=== PATIENT | male | born 1970 | race American Indian/Alaskan Native ===

== ENCOUNTER 2016-07-23 03:12 | Emergency (ER) | payer OTHER ==
[2016-07-23 03:13] VITALS: PULSE 100
[2016-07-23 03:18] VITALS: BMI 34.2
[2016-07-23] MEDS ORDERED: Rabies Vaccine 2.5 U VIAL IM ONE (03:52)
--- NOTE | 2016-07-23 03:54 | ED PDOC ---
Arrival/HPI - General Historian: Patient - History of Present Illness Symptom Onset: Sudden Symptom Course: Intermittent Quality: Aching, Cramping Severity Level: 6 Activities at Onset: Rest Context: Sitting <Woo Velázquez - Last Filed: 07/23/16 04:17> <Chucho Mccartney - Last Filed: 07/23/16 04:34> - General Chief Complaint: Medical Clearance Time Seen by Provider: 07/23/16 03:32 - History of Present Illness Narrative History of Present Illness (Text): 07/23/16 03:53 45 M with PMHx of DM, end-stage cardiomyopathy s/p heart transplant 2013, stroke , HTN, asthma presents to [facility] ED with complaints of rt sided chest pains. Pt was to follow up for another dose of a rabies vaccine after being bitten by a dog 2 weeks ago, however decided to come to the ED after experiencing rt sided chest pain x 2 days. He was lying down when the sx arose, and he associated it with the cold weather outside exacerbating it. It is a sharp cramping pain, reproducible on palpation, radiates to his rt shoulder blade and is worse when he stretches. He currently rates it at a 6/10, it has remained constant for 2 days and waxes and wanes. He denied fever, chills, sob, palpitations, abdominal pains, n/v/d/c or urinary symptoms. (oWo Velázquez) Past Medical History - Infectious Disease Hx of Infectious Diseases: None - Tetanus Immunization Tetanus Immunization: Up to Date - Cardiac Hx Cardiac Disorders: Yes Hx Angina: Yes Hx Cardiac Arrhythmia: Yes Hx Circulatory Problems: No Hx Congestive Heart Failure: Yes Hx Heart Murmur: No Hx Heart Transplant: No Hx Hypertension: Yes Hx Mitral Valve Prolapse: No Hx Pacemaker: No Hx Peripheral Edema: No Hx Peripheral Vascular Disease: No - Pulmonary Hx Respiratory Disorders: Yes Hx Asthma: Yes Hx Bronchitis: No Hx Chronic Obstructive Pulmonary Disease (COPD): No Hx Emphysema: No Hx Pneumonia: No Hx Respiratory Aspiration: No Hx Respiratory Tract Infection: No Hx Sleep Apnea: No Hx Tuberculosis: No - Neurological Hx Neurological Disorder: Yes Hx Alzheimer's Disease: No HX Cerebrovascular Accident: Yes Hx Dementia: No Hx Dizziness: Yes Hx Meningitis: No Hx Migraine: No Hx Parkinson's Disease: No Hx Seizures: No Hx Transient Ischemic Attacks (TIA): Yes - HEENT Hx HEENT Disorder: No Hx Blind: No Hx Cataracts: No Hx Deafness: No Hx Difficulty Chewing: No Hx Epistaxis: No Hx Glaucoma: No Hx Macular Degeneration: No - Renal Hx Renal Disorder: No Hx Dialysis: No Hx Kidney Stones: No Hx Neurogenic Bladder: No Hx Pyelonephritis: No Hx Renal Cancer: No Hx Renal Failure: No - Endocrine/Metabolic Hx Endocrine Disorders: Yes Hx Adrenal Cancer: No Hx Diabetes Insipidus: No Hx Diabetes Mellitus Type 1: No Hx Diabetes Mellitus Type 2: Yes Hx Hyperthyroidism: No Hx Hypothyroidism: No Hx Systemic Lupus Erythematosus: No - Hematological/Oncological Hx Blood Disorders: No Hx AIDS: No Hx Anemia: No Hx Cancer: No Hx Chemotherapy: No Hx Cirrhosis: No Hx Hemophilia: No Hx Hepatitis A: No Hx Hepatitis B: No Hx Hepatitis C: No Hx Metastasis: No Hx Shingles: No Hx Sickle Cell Disease: No Hx Unexplained Bleeding: No - Integumentary Hx Dermatological Disorder: No Hx Basal Cell Carcinoma: No Hx Eczema: No Hx Melanoma: No Hx Psoriasis: No Hx Squamous Cell Carcinoma: No - Musculoskeletal/Rheumatological Hx Musculoskeletal Disorders: No Hx Falls: No - Gastrointestinal Hx Gastrointestinal Disorders: No Hx Colostomy: No Hx Crohn's Disease: No Hx Diverticulitis: No Hx Gall Bladder Disease: No Hx Gastroesophageal Reflux: No Hx Gastrointestinal Ulcer: No Hx Ileostomy: No Hx Liver Failure: No Hx Pancreatitis: No HX Swallowing Problems: No - Genitourinary/Gynecological Hx Genitourinary Disorders: No Hx Hematuria: No Hx Incontinence: No Hx Prostate Problems: No Hx Sexually Transmitted Diseases: No Hx Urinary Tract Infection: No - Psychiatric Hx Psychophysiologic Disorder: No Hx Anxiety: No Hx Bipolar Disorder: No Hx Depression: No Hx Emotional Abuse: No Hx Hallucinations: No Hx Panic Disorder: No Hx Post Traumatic Stress Disorder: No Hx Psychosis: No Hx Physical Abuse: No Hx Schizophrenia: No Hx Sexual Abuse: No Hx Substance Use: No - Past Surgical History Past Surgical History: No Previous - Surgical History Hx Amputation: No Hx Appendectomy: No Hx Cardiac Catheterization: Yes Hx Cholecystectomy: No Hx Coronary Stent: No Hx Gastric Bypass Surgery: No Hx Hysterectomy: No Hx Joint Replacement: No Hx Kidney Transplant: No Hx Liver Transplant: No Hx Mastectomy: No Hx Musculoskeletal Surgery: No Hx Open Heart Surgery: No Hx Orthopedic Surgery: No Hx Splenectomy: No Hx Valve Replacement: No Other/Comment: heart transplant 2013 - Anesthesia Hx Anesthesia Reactions: No Hx Malignant Hyperthermia: No - Suicidal Assessment Feels Threatened In Home Enviroment: Yes <Woo Velázquez - Last Filed: 07/23/16 04:17> - Provider Review Nursing Documentation Reviewed: Yes <Chucho Mccartney - Last Filed: 07/23/16 04:34> Family/Social History Family/Social History: Hypertension Smoking Status: Former Smoker Hx Alcohol Use: No Hx Substance Use: No Hx Substance Use Treatment: No <Woo Velázquez - Last Filed: 07/23/16 04:17> - Physician Review Nursing Documentation Reviewed: Yes <Chucho Mccartney - Last Filed: 07/23/16 04:34> Allergies/Home Meds <Woo Velázquez - Last Filed: 07/23/16 04:17> <Chucho Mccartney - Last Filed: 07/23/16 04:34> Allergies/Adverse Reactions: Allergies shellfish Allergy (Severe, Uncoded 07/23/16 03:22) ANGIOEDEMA Home Medications: Home Meds Medication Instructions Recorded Confirmed Warfarin [Coumadin] 6 mg PO DAILY 10/18/11 07/23/16 Aspirin [Aspirin Chewable] 81 mg PO DAILY 08/12/15 07/23/16 Atorvastatin [Lipitor] 10 mg PO DAILY 08/12/15 07/23/16 Calcium Citrate [Calcium Citrate] 950 mg PO DAILY 08/12/15 07/23/16 Folic Acid [Folic Acid] 1 mg PO DAILY 08/12/15 07/23/16 Gabapentin [Neurontin] 800 mg PO Q8 08/12/15 07/23/16 Lisinopril [Zestril] 10 mg PO DAILY 08/12/15 07/23/16 Magnesium Oxide [Laxative Dietary 1,500 mg PO BID 08/12/15 07/23/16 Supplement] MetFORMIN [glucoPHAGE] 500 mg PO BID 08/12/15 07/23/16 Multivitamin [Multivitamins] 1 tab PO DAILY 08/12/15 07/23/16 Pantoprazole Sodium [Protonix] 40 mg PO DAILY 08/12/15 07/23/16 Tacrolimus [Tacrolimus] 6 mg PO BID 08/12/15 07/23/16 Review of Systems - Physician Review All systems were reviewed & negative as marked: Yes - Review of Systems Constitutional: absent: Fevers Respiratory: absent: SOB, Cough Cardiovascular: Chest Pain. absent: Palpitations Gastrointestinal: absent: Nausea, Vomiting Genitourinary Male: absent: Dysuria, Frequency, Hematuria Musculoskeletal: absent: Back Pain, Neck Pain Skin: absent: Rash Neurological: absent: Headache, Dizziness <Chucho Mccartney - Last Filed: 07/23/16 04:34> Physical Exam Vital Signs Reviewed: Yes Temperature: Afebrile Blood Pressure: Normal Pulse: Regular Respiratory Rate: Normal Appearance: Positive for: Well-Appearing, Non-Toxic, Comfortable Pain Distress: Moderate Mental Status: Positive for: Alert and Oriented X 3 - Systems Exam Head: Present: Atraumatic, Normocephalic Pupils: Present: PERRL Extroacular Muscles: Present: EOMI Conjunctiva: Present: Normal Mouth: Present: Moist Mucous Membranes Neck: Present: Normal Range of Motion Respiratory/Chest: Present: Clear to Auscultation, Good Air Exchange. No: Respiratory Distress, Accessory Muscle Use Cardiovascular: Present: Regular Rate and Rhythm, Normal S1, S2. No: Murmurs Abdomen: Present: Tenderness Upper Extremity: Present: Normal Inspection. No: Cyanosis, Edema Lower Extremity: Present: Normal Inspection. No: Edema Skin: Present: Warm, Dry, Normal Color. No: Rashes Psychiatric: Present: Alert, Oriented x 3, Normal Insight, Normal Concentration <Woo Velázquez - Last Filed: 07/23/16 04:17> Vital Signs Temp Pulse Resp BP Pulse Ox 07/23/16 03:57 97.6 F 90 18 145/88 97 Medical Decision Making <Woo Velázquez - Last Filed: 07/23/16 04:17> <Chucho Mccartney - Last Filed: 07/23/16 04:34> ED Course and Treatment: Pt seen and evaluated with medical device sales consultant. Pt, whose past medical history includes diabetes, cardiomyopathy, heart transplant, stroke, hypertension, and asthma, presented for right-sided chest pain, reproducible with palpation. Pt also presented for 3rd rabies vaccine s/p dog bite 2 weeks ago. Aware and agree with HPI, clinical findings, plan, and management. Plan: -- Imovax Rabies -- Percocet -- Reassess and disposition (Chucho Mccartney) - Medication Orders Current Medication Orders: Discontinued Medications Oxycodone/Acetaminophen (Percocet 5/325 Mg Tab) 1 tab PO STAT STA Stop: 07/23/16 03:57 Last Admin: 07/23/16 04:05 Dose: 1 TAB Rabies Vaccine Human Diploid Cell (Imovax Rabies) 2.5 u IM .ONCE ONE Stop: 07/23/16 03:53 Last Admin: 07/23/16 04:06 Dose: 2.[address] [facility] Immunization Data Document 07/23/16 04:06 EKMORENA (Rec: 07/23/16 04:08 [email or web address] [id number] [email or web address]) Immunization Data Vaccine Lot Number [id number] Vaccine Expiration Date 07/09/19 Site Given Left Deltoid Immunization Units ml Disposition/Present on Arrival - Present on Arrival Any Indicators Present on Arrival: Yes History of DVT/PE: Yes History of Uncontrolled Diabetes: No Urinary Catheter: No History of Decub. Ulcer: No History Surgical Site Infection Following: None - Disposition Have Diagnosis and Disposition been Completed?: Yes Disposition Time: 04:00 Patient Plan: Discharge <Woo Velázquez - Last Filed: 07/23/16 04:17> <Chucho Mccartney - Last Filed: 07/23/16 04:34> - Disposition Diagnosis: Chest wall discomfort, Need for rabies vaccination Disposition: HOME/ ROUTINE Patient Problems: Current Active Problems Problem Status Diagnosed Chest wall discomfort Acute Need for rabies vaccination Acute Condition: STABLE Discharge Instructions (ExitCare): Rabies Vaccine (By injection), Chest Wall Pain (ED) Print Language: SINHALA Prescriptions: oxyCODONE/Acetaminophen [Percocet 5/325 mg Tab] 1 tab PO Q6H PRN #10 tab PRN Reason: moderate to severe pain - Notes Notes (Text): 07/23/16 04:17 Patient is nontoxic well-appearing in no distress. Vital signs are stable. Patient presents for rabies vaccine, and msk rt sided chest wall tenderness Patient missed the day 3 rabies vaccine and presents one day early for his day 7 rabies vaccine. We will administer the rabies vaccine today and then have the patient continue the rabies vaccine on day 28 08/05 since the patient is immunosuppressed. wound healing well without signs of infection. Patient was advised to keep the wound clean and dry, apply bacitracin twice daily, to continue to take the antibiotics as prescribed and return immediately if symptoms worsen persist or if new symptoms develop. pt was advised to return august 05 for continuation of his rabies vaccine schedule. Patient verbalizes understanding of discharge instructions and need for immediate followup. all aspects of this case were discussed the attending of record. Impression: need for rabies vaccine, dog bite. Continue antibiotics as prescribed. Keep the wound clean and dry, apply bacitracin twice daily Return on August 05 for the remainder or your rabies vaccine. Return immediately if signs of infection develop; High fevers, increasing pain, increasing redness, swelling or if any other concerning symptoms develop. Return immediately if any other concerning symptoms develop. (Woo Velázquez)
[2016-07-23] MEDS ORDERED: Oxycodone/Acetaminophen 5/325 mg Tab PO STA (03:56)
[2016-07-23 03:58] VITALS: BP 145/88; PULSE 90; RESP 18; TEMP 97.6; O2SAT 97
--- NOTE | 2016-07-23 10:22 | CARD ---
APPROVED REPORT EKG Measurement Heart [id number] <Conclusion> Normal sinus rhythm Possible old IMI NSSTW changes Mildly prolonged QTc No change
== END 2016-07-23 05:27 | disposition home or self-care (01) ==
LOC: ED 03:12
DX: R07.89 Other chest pain (principal); Z23 Encounter for immunization; I10 Essential (primary) hypertension

== ENCOUNTER 2016-08-06 09:21 | Emergency (ER) | payer OTHER ==
[2016-08-06 09:22] VITALS: PULSE 100; BMI 34.2
[2016-08-06 09:39] VITALS: TEMP 97.5
--- NOTE | 2016-08-06 10:12 | ED PDOC ---
Arrival/HPI - General Historian: Patient - History of Present Illness Time/Duration: < month Context: Home - General Chief Complaint: Rabies Vaccine Series Time Seen by Provider: 08/06/16 10:12 - History of Present Illness Narrative History of Present Illness (Text): 08/06/16 10:12 This 45 yo male presents to this ED to get his last dose of Rabies vaccine. Patient was seen this ED 3 times, in which he received Rabies shot. Today he is expecting to get day 14 rabies shot. He said his dogs bite wounds have completely healed. Patient denies new complains. (Delilah Enriquez) Past Medical History - Provider Review Nursing Documentation Reviewed: Yes - Infectious Disease Hx of Infectious Diseases: None - Tetanus Immunization Tetanus Immunization: Up to Date - Cardiac Hx Cardiac Disorders: Yes Hx Angina: Yes Hx Cardiac Arrhythmia: Yes Hx Circulatory Problems: No Hx Congestive Heart Failure: Yes Hx Heart Murmur: No Hx Heart Transplant: No Hx Hypertension: Yes Hx Mitral Valve Prolapse: No Hx Pacemaker: No Hx Peripheral Edema: No Hx Peripheral Vascular Disease: No - Pulmonary Hx Respiratory Disorders: Yes Hx Asthma: Yes Hx Bronchitis: No Hx Chronic Obstructive Pulmonary Disease (COPD): No Hx Emphysema: No Hx Pneumonia: No Hx Respiratory Aspiration: No Hx Respiratory Tract Infection: No Hx Sleep Apnea: No Hx Tuberculosis: No - Neurological Hx Neurological Disorder: Yes Hx Alzheimer's Disease: No HX Cerebrovascular Accident: Yes Hx Dementia: No Hx Dizziness: Yes Hx Meningitis: No Hx Migraine: No Hx Parkinson's Disease: No Hx Seizures: No Hx Transient Ischemic Attacks (TIA): Yes - HEENT Hx HEENT Disorder: No Hx Blind: No Hx Cataracts: No Hx Deafness: No Hx Difficulty Chewing: No Hx Epistaxis: No Hx Glaucoma: No Hx Macular Degeneration: No - Renal Hx Renal Disorder: No Hx Dialysis: No Hx Kidney Stones: No Hx Neurogenic Bladder: No Hx Pyelonephritis: No Hx Renal Cancer: No Hx Renal Failure: No - Endocrine/Metabolic Hx Endocrine Disorders: Yes Hx Adrenal Cancer: No Hx Diabetes Insipidus: No Hx Diabetes Mellitus Type 1: No Hx Diabetes Mellitus Type 2: Yes Hx Hyperthyroidism: No Hx Hypothyroidism: No Hx Systemic Lupus Erythematosus: No - Hematological/Oncological Hx Blood Disorders: No Hx AIDS: No Hx Anemia: No Hx Cancer: No Hx Chemotherapy: No Hx Cirrhosis: No Hx Hemophilia: No Hx Hepatitis A: No Hx Hepatitis B: No Hx Hepatitis C: No Hx Metastasis: No Hx Shingles: No Hx Sickle Cell Disease: No Hx Unexplained Bleeding: No - Integumentary Hx Dermatological Disorder: No Hx Basal Cell Carcinoma: No Hx Eczema: No Hx Melanoma: No Hx Psoriasis: No Hx Squamous Cell Carcinoma: No - Musculoskeletal/Rheumatological Hx Musculoskeletal Disorders: No Hx Falls: No - Gastrointestinal Hx Gastrointestinal Disorders: No Hx Colostomy: No Hx Crohn's Disease: No Hx Diverticulitis: No Hx Gall Bladder Disease: No Hx Gastroesophageal Reflux: No Hx Gastrointestinal Ulcer: No Hx Ileostomy: No Hx Liver Failure: No Hx Pancreatitis: No HX Swallowing Problems: No - Genitourinary/Gynecological Hx Genitourinary Disorders: No Hx Hematuria: No Hx Incontinence: No Hx Prostate Problems: No Hx Sexually Transmitted Diseases: No Hx Urinary Tract Infection: No - Psychiatric Hx Psychophysiologic Disorder: No Hx Anxiety: No Hx Bipolar Disorder: No Hx Depression: No Hx Emotional Abuse: No Hx Hallucinations: No Hx Panic Disorder: No Hx Post Traumatic Stress Disorder: No Hx Psychosis: No Hx Physical Abuse: No Hx Schizophrenia: No Hx Sexual Abuse: No Hx Substance Use: No - Past Surgical History Past Surgical History: No Previous - Surgical History Hx Amputation: No Hx Appendectomy: No Hx Cardiac Catheterization: Yes Hx Cholecystectomy: No Hx Coronary Stent: No Hx Gastric Bypass Surgery: No Hx Hysterectomy: No Hx Joint Replacement: No Hx Kidney Transplant: No Hx Liver Transplant: No Hx Mastectomy: No Hx Musculoskeletal Surgery: No Hx Open Heart Surgery: No Hx Orthopedic Surgery: No Hx Splenectomy: No Hx Valve Replacement: No Other/Comment: heart transplant 2013 - Anesthesia Hx Anesthesia Reactions: No Hx Malignant Hyperthermia: No - Suicidal Assessment Feels Threatened In Home Enviroment: Yes Family/Social History - Physician Review Nursing Documentation Reviewed: Yes Family/Social History: No Known Family HX Smoking Status: Former Smoker Hx Alcohol Use: No Hx Substance Use: No Hx Substance Use Treatment: No Allergies/Home Meds Allergies/Adverse Reactions: Allergies shellfish Allergy (Severe, Uncoded 08/06/16 09:39) ANGIOEDEMA Home Medications: Home Meds Medication Instructions Recorded Confirmed Warfarin [Coumadin] 6 mg PO DAILY 10/18/11 07/23/16 Aspirin [Aspirin Chewable] 81 mg PO DAILY 08/12/15 07/23/16 Atorvastatin [Lipitor] 10 mg PO DAILY 08/12/15 07/23/16 Calcium Citrate [Calcium Citrate] 950 mg PO DAILY 08/12/15 07/23/16 Folic Acid [Folic Acid] 1 mg PO DAILY 08/12/15 07/23/16 Gabapentin [Neurontin] 800 mg PO Q8 08/12/15 07/23/16 Lisinopril [Zestril] 10 mg PO DAILY 08/12/15 07/23/16 Magnesium Oxide [Laxative Dietary 1,500 mg PO BID 08/12/15 07/23/16 Supplement] MetFORMIN [glucoPHAGE] 500 mg PO BID 08/12/15 07/23/16 Multivitamin [Multivitamins] 1 tab PO DAILY 08/12/15 07/23/16 Pantoprazole Sodium [Protonix] 40 mg PO DAILY 08/12/15 07/23/16 Tacrolimus [Tacrolimus] 6 mg PO BID 08/12/15 07/23/16 Review of Systems - Review of Systems Constitutional: Normal. absent: Fatigue, Weight Change, Fevers Eyes: Normal ENT: Normal Respiratory: Normal Cardiovascular: Normal Gastrointestinal: Normal Genitourinary Male: Normal Musculoskeletal: Normal Skin: Other (multiple wound sacr on right hand form dog puncture. ) Neurological: Normal Endocrine: Normal Hemo/Lymphatic: Normal Psychiatric: Normal Physical Exam Temperature: Afebrile Blood Pressure: Normal Pulse: Regular Respiratory Rate: Normal Appearance: Positive for: Well-Appearing, Non-Toxic, Comfortable Pain Distress: None Mental Status: Positive for: Alert and Oriented X 3 - Systems Exam Head: Present: Atraumatic, Normocephalic Pupils: Present: PERRL Extroacular Muscles: Present: EOMI Conjunctiva: Present: Normal Mouth: Present: Moist Mucous Membranes Neck: Present: Normal Range of Motion Respiratory/Chest: Present: Clear to Auscultation, Good Air Exchange. No: Respiratory Distress, Accessory Muscle Use, Wheezes, Decreased Breath Sounds, Retracting, Rhonchi, Tachypneic Cardiovascular: Present: Regular Rate and Rhythm, Normal S1, S2. No: Murmurs Upper Extremity: Present: Normal Inspection, Normal ROM, Neurovascularly Intact. No: Tenderness, Swelling, Erythema, Temperature Abnormalties Lower Extremity: Present: Normal Inspection, NORMAL PULSES, Normal ROM. No: Edema, CALF TENDERNESS Neurological: Present: GCS=15, CN II-XII Intact, Speech Normal, Motor Func Grossly Intact, Normal Sensory Function, Normal Cerebellar Funct Skin: Present: Warm, Dry, Normal Color. No: Rashes Psychiatric: Present: Alert, Oriented x 3 Vital Signs Temp Pulse Resp BP Pulse Ox 08/06/16 11:14 139 H 17 139/78 98 08/06/16 09:35 97.5 F L 99 H 18 133/77 100 Medical Decision Making Re-evaluation Time: 10:28 Reassessment Condition: Re-examined, Improved ED Course and Treatment: 08/06/16 10:28 Re-evaluation. Patient feels better. Discussed results and plan with patient who expresses understanding. All questions answered and there is agreement with the plan to discharge home with instructions. Patient stable for discharge. Return if symptoms persist or worsen. Patient was made aware that today is his 4th, and last rabies shot. He had completed Day 0, 3, 7, and 14 (Delilah Enriquez) I was available for consultation during PA evaluation. The chart was reviewed by me, and I agree with disposition. The documented history was done by the physician welder setter resistance machine. The documented physical exam was done by the physician welder setter resistance machine. The documented procedures were done by the physician welder setter resistance machine. ( Young Crain) - Medication Orders Current Medication Orders: Discontinued Medications Rabies Vaccine Human Diploid Cell (Imovax Rabies) 2.5 u IM .ONCE ONE Stop: 08/06/16 10:16 Last Admin: 08/06/16 10:58 Dose: 2.5 U [facility] Immunization Data Document 08/06/16 10:58 SF (Rec: 08/06/16 11:00 [email or web address]) Immunization Data Vaccine Lot Number [id number] Vaccine Expiration Date 12/28/19 Site Given Left Deltoid Route Intramuscular Disposition/Present on Arrival - Present on Arrival Any Indicators Present on Arrival: No History of DVT/PE: No History of Uncontrolled Diabetes: No Urinary Catheter: No History of Decub. Ulcer: No History Surgical Site Infection Following: None - Disposition Have Diagnosis and Disposition been Completed?: Yes Disposition Time: 10:29 Patient Plan: Discharge - Disposition Diagnosis: Need for rabies vaccination Disposition: HOME/ ROUTINE Condition: GOOD Discharge Instructions (ExitCare): Rabies Vaccine (By injection) Additional Instructions: Call private doctor for further medical evaluation as needed. Referrals: Bry Vu MD [Primary Care Provider] - Follow up with primary Forms: WORK NOTE
[2016-08-06] MEDS ORDERED: Rabies Vaccine 2.5 U VIAL IM ONE (10:15)
[2016-08-06 11:14] VITALS: BP 139/78; PULSE 139; RESP 17; O2SAT 98
== END 2016-08-06 11:14 | disposition home or self-care (01) ==
LOC: ED 09:21
DX: Z23 Encounter for immunization (principal)

== ENCOUNTER 2016-11-11 02:17 | Emergency (ER) | payer OTHER ==
[2016-11-11 02:18] VITALS: PULSE 100; BMI 34.2
[2016-11-11] MEDS ORDERED: Ampicillin/Sulbactam 3 GM in Sodium Chloride 0.9% 100 ML IVPB STA (03:03)
[2016-11-11] MEDS ORDERED: Lidocaine 1% Inj (20ml) ONE (03:04)
--- NOTE | 2016-11-11 03:21 | ED PDOC ---
Arrival/HPI - General Chief Complaint: Upper Extremity Problem/Injury Time Seen by Provider: 11/11/16 02:55 Historian: Patient - History of Present Illness Narrative History of Present Illness (Text): 11/11/16 03:18 Avel Marie is a 45 year old male, with a history of diabetes, presents to the emergency department for evaluation of dog bite to both hands. Patient sustained the bite to his palms when he tried to break up a fight between 2 of his dogs. Patient unsure if the dog that bit him is up to date with its shots. Patient had a history of recent dog bit during July 2016 when he was vaccinated against Rabies and tetanus was updated. Denies any numbness, weakness or tingling sensation to the extremities. Denies any other complaints. Time/Duration: Prior to Arrival Symptom Onset: Gradual Severity Level: Moderate Context: Home Past Medical History - Provider Review Nursing Documentation Reviewed: Yes - Infectious Disease Hx of Infectious Diseases: None - Tetanus Immunization Tetanus Immunization: Up to Date - Cardiac Hx Cardiac Disorders: Yes Hx Angina: Yes Hx Cardiac Arrhythmia: Yes Hx Circulatory Problems: No Hx Congestive Heart Failure: Yes Hx Heart Murmur: No Hx Heart Transplant: Yes (2013) Hx Hypertension: Yes Hx Mitral Valve Prolapse: No Hx Pacemaker: No Hx Peripheral Edema: No Hx Peripheral Vascular Disease: No - Pulmonary Hx Respiratory Disorders: Yes Hx Asthma: Yes Hx Bronchitis: No Hx Chronic Obstructive Pulmonary Disease (COPD): No Hx Emphysema: No Hx Pneumonia: No Hx Respiratory Aspiration: No Hx Respiratory Tract Infection: No Hx Sleep Apnea: No Hx Tuberculosis: No - Neurological Hx Neurological Disorder: Yes Hx Alzheimer's Disease: No HX Cerebrovascular Accident: Yes Hx Dementia: No Hx Meningitis: No Hx Migraine: No Hx Parkinson's Disease: No Hx Seizures: No Hx Transient Ischemic Attacks (TIA): Yes - HEENT Hx HEENT Disorder: No Hx Blind: No Hx Cataracts: No Hx Deafness: No Hx Difficulty Chewing: No Hx Epistaxis: No Hx Glaucoma: No Hx Macular Degeneration: No - Renal Hx Renal Disorder: No Hx Dialysis: No Hx Kidney Stones: No Hx Neurogenic Bladder: No Hx Pyelonephritis: No Hx Renal Cancer: No Hx Renal Failure: No - Endocrine/Metabolic Hx Endocrine Disorders: Yes Hx Adrenal Cancer: No Hx Diabetes Insipidus: No Hx Diabetes Mellitus Type 1: No Hx Diabetes Mellitus Type 2: Yes Hx Hyperthyroidism: No Hx Hypothyroidism: No Hx Systemic Lupus Erythematosus: No - Hematological/Oncological Hx Blood Disorders: No Hx AIDS: No Hx Anemia: No Hx Cancer: No Hx Chemotherapy: No Hx Cirrhosis: No Hx Hemophilia: No Hx Hepatitis A: No Hx Hepatitis B: No Hx Hepatitis C: No Hx Metastasis: No Hx Shingles: No Hx Sickle Cell Disease: No Hx Unexplained Bleeding: No - Integumentary Hx Dermatological Disorder: No Hx Basal Cell Carcinoma: No Hx Eczema: No Hx Melanoma: No Hx Psoriasis: No Hx Squamous Cell Carcinoma: No - Musculoskeletal/Rheumatological Hx Musculoskeletal Disorders: No Hx Falls: No - Gastrointestinal Hx Gastrointestinal Disorders: No Hx Colostomy: No Hx Crohn's Disease: No Hx Diverticulitis: No Hx Gall Bladder Disease: No Hx Gastroesophageal Reflux: No Hx Gastrointestinal Ulcer: No Hx Ileostomy: No Hx Liver Failure: No Hx Pancreatitis: No HX Swallowing Problems: No - Genitourinary/Gynecological Hx Genitourinary Disorders: No Hx Hematuria: No Hx Incontinence: No Hx Prostate Problems: No Hx Sexually Transmitted Diseases: No Hx Urinary Tract Infection: No - Psychiatric Hx Psychophysiologic Disorder: No Hx Anxiety: No Hx Bipolar Disorder: No Hx Depression: No Hx Emotional Abuse: No Hx Hallucinations: No Hx Panic Disorder: No Hx Post Traumatic Stress Disorder: No Hx Psychosis: No Hx Physical Abuse: No Hx Schizophrenia: No Hx Sexual Abuse: No Hx Substance Use: No - Past Surgical History Past Surgical History: No Previous - Surgical History Hx Amputation: No Hx Appendectomy: No Hx Cardiac Catheterization: Yes Hx Cholecystectomy: No Hx Coronary Stent: No Hx Gastric Bypass Surgery: No Hx Hysterectomy: No Hx Joint Replacement: No Hx Kidney Transplant: No Hx Liver Transplant: No Hx Mastectomy: No Hx Musculoskeletal Surgery: No Hx Open Heart Surgery: No Hx Orthopedic Surgery: Yes (in rt shoulder) Hx Splenectomy: No Hx Valve Replacement: No Other/Comment: heart transplant 2013 - Anesthesia Hx Anesthesia Reactions: No Hx Malignant Hyperthermia: No - Suicidal Assessment Feels Threatened In Home Enviroment: Yes Family/Social History - Physician Review Nursing Documentation Reviewed: Yes Family/Social History: No Known Family HX Smoking Status: Former Smoker Hx Alcohol Use: No Hx Substance Use: No Hx Substance Use Treatment: No Allergies/Home Meds Allergies/Adverse Reactions: Allergies shellfish Allergy (Severe, Uncoded 11/11/16 02:39) ANGIOEDEMA Home Medications: Home Meds Medication Instructions Recorded Confirmed Warfarin [Coumadin] 6 mg PO DAILY 10/18/11 11/11/16 Aspirin [Aspirin Chewable] 81 mg PO DAILY 08/12/15 11/11/16 Atorvastatin [Lipitor] 10 mg PO DAILY 08/12/15 11/11/16 Calcium Citrate [Calcium Citrate] 950 mg PO DAILY 08/12/15 11/11/16 Folic Acid [Folic Acid] 1 mg PO DAILY 08/12/15 11/11/16 Lisinopril [Zestril] 10 mg PO DAILY 08/12/15 11/11/16 Magnesium Oxide [Laxative Dietary 1,500 mg PO BID 08/12/15 11/11/16 Supplement] MetFORMIN [glucoPHAGE] 500 mg PO BID 08/12/15 11/11/16 Multivitamin [Multivitamins] 1 tab PO DAILY 08/12/15 11/11/16 Pantoprazole Sodium [Protonix] 40 mg PO DAILY 08/12/15 11/11/16 Tacrolimus [Tacrolimus] 6 mg PO BID 08/12/15 11/11/16 Review of Systems - Review of Systems Constitutional: absent: Fevers Musculoskeletal: Other (large laceration on left palm. small superficial laceration on right palm. ) Physical Exam Vital Signs Temp Pulse Resp BP Pulse Ox 11/11/16 03:39 102 H 19 138/86 100 11/11/16 02:34 98.5 F 106 H 18 161/99 H 99 Temperature: Afebrile Blood Pressure: Hypertensive Pulse: Tachycardic Respiratory Rate: Normal Appearance: Positive for: Uncomfortable Pain Distress: Mild Mental Status: Positive for: Alert and Oriented X 3 - Systems Exam Head: Present: Atraumatic, Normocephalic Upper Extremity: Present: Normal ROM, NORMAL PULSES, Neurovascularly Intact, Other (8 cm laceration along the crease of thenar eminance in left hand. Multiple superficial lacerations on left forearm. small laceration on right web space; no tendon exposure ). No: Edema Neurological: Present: GCS=15, CN II-XII Intact, Speech Normal, Motor Func Grossly Intact, Normal Sensory Function Psychiatric: Present: Alert, Oriented x 3, Normal Insight, Normal Concentration Medical Decision Making ED Course and Treatment: 11/11/16 03:28 Impression: A 45 year old male who presents to the emergency department for evaluation of dog bite to bilateral palms, with the one on the right being more prominent. Patient already received rabies prophylaxis about 3 months ago as well as tetanus. Plan: -- Unasyn -- Rabies Vaccine -- Xrays -- Reassess and disposition Progress Notes: 11/11/16 07:24 X-ray showing no FB and patient is NV intact with FROM. Spoke with [facility] hand coverage, who advised that since patient is nv intact, that irrigation and closure with abx coverage is sufficient. resident care supervisor did loose approximation in the ED for closure and patient given rabies and one dose of unasyn. Case discussed with Dr. Chamberlain who said she can follow up the patient in her office. He will be discharged on abx and pain medicine and f/u with Dr. Chamberlain and return to the ED in 3 days for second and final dose of rabies prophylaxis. - RAD Interpretation Radiology Orders: 11/11/16 03:24 HAND LEFT 3 VIEWS ROUTINE [RAD] Stat HAND RIGHT 3 VIEWS [RAD] Stat - Medication Orders Current Medication Orders: Discontinued Medications Ampicillin Sodium/Sulbactam (Sodium 3 gm/ Sodium Chloride) 100 mls @ 100 mls/ hr IVPB STAT STA PRN Reason: Protocol Stop: 11/11/16 04:02 Last Admin: 11/11/16 03:38 Dose: 100 mls/hr Lidocaine HCl (Lidocaine 1% (20ml)) Confirm Administered Dose 20 ml .ROUTE .STK- MED ONE Stop: 11/11/16 03:05 Oxycodone/Acetaminophen (Percocet 5/325 Mg Tab) 2 tab PO STAT STA Stop: 11/11/16 05:01 Last Admin: 11/11/16 05:23 Dose: 2 tab Rabies Vaccine Human Diploid Cell (Rabavert Vaccine Inj) 2.5 u IM .ONCE ONE Stop: 11/11/16 03:43 Last Admin: 11/11/16 05:04 Dose: 2.5 u - Scribe Statement The provider has reviewed the documentation as recorded by the Artem Guardado Provider Attestation: All medical record entries made by the Scribe were at my direction and personally dictated by me. I have reviewed the chart and agree that the record accurately reflects my personal performance of the history, physical exam, medical decision making, and the department course for this patient. I have also personally directed, reviewed, and agree with the discharge instructions and disposition. Disposition/Present on Arrival - Present on Arrival Any Indicators Present on Arrival: No History of DVT/PE: No History of Uncontrolled Diabetes: No Urinary Catheter: No History of Decub. Ulcer: No History Surgical Site Infection Following: None - Disposition Have Diagnosis and Disposition been Completed?: Yes Diagnosis: Dog bite, Dog bite of hand, Laceration of hand Disposition: HOME/ ROUTINE Disposition Time: 07:30 Patient Plan: Discharge Condition: GOOD Discharge Instructions (ExitCare): Laceration (ED), Animal Bite (ED) Additional Instructions: Keep hand elevated in sling. Take the antibiotics as prescribed. Percocet for pain as prescribed. Make sure your follow up with Dr. Chamberlain, hand surgeon. Return to the ER in three days for your second and final rabies vaccine. Return to the emergency department if any new concerning symptoms. Prescriptions: Amoxicillin/Clavulanate [Augmentin 875 MG-125 MG] 1 tab PO BID #20 tab oxyCODONE/Acetaminophen [Percocet 5/325 mg Tab] 1 - 2 tab PO Q6H PRN #20 tab PRN Reason: Pain, Severe (8-10) Referrals: Aviva Chamberlain MD [Non-Staff] - Follow up with primary
[2016-11-11] MEDS ORDERED: RABIES VACCINE 2.5 U PDR IM ONE (03:42)
[2016-11-11] MEDS ORDERED: Oxycodone/Acetaminophen 5/325 mg Tab PO STA (05:00)
--- NOTE | 2016-11-11 07:43 | RAD ---
PROCEDURE: Left Hand Radiographs. HISTORY: dog bite COMPARISON: None. FINDINGS: BONES: No fracture. JOINTS: Normal. No osteoarthritic changes. SOFT TISSUES: There is thenar mottled density and soft tissues swelling consistent with the history. No cortical or osseous an abruption seen. No gross radiopaque foreign body OTHER FINDINGS: None. IMPRESSION: Soft tissue alteration consistent with dog bite no cortical/ osseous interruption. No radiopaque foreign body appreciated
--- NOTE | 2016-11-11 07:44 | PCM.PROC ---
Procedures Attestation:: I certify that I have explained the specified Operation(s) or Procedure(s), risks, benefits and reasonable alternatives to the Patient and/or other person responsible. The opportunity was given to ask questions and all questions answered - Laceration lidocaine 1% simple, single layer irregular irrigated extensively left hand 5-0 other other Site: hand Side (if applicable): left Size (cm): 7 Description: linear, irregular Depth: simple, single layer Anesthesia used: lidocaine 1% Anesthesia technique: local infiltration Amount (mLs): 10 Pre-repair: irrigated extensively Skin layer closed with: other Size: 5-0 Number of sutures: 3 Technique: other
--- NOTE | 2016-11-11 07:47 | RAD ---
PROCEDURE: Right Hand Radiographs. HISTORY: dog bite COMPARISON: 07/08/2016 (prior dog bite also over the reason for the prior exam) FINDINGS: BONES: No fracture. The 1st metacarpal base appears hypertrophic slightly dysmorphic here are remote trauma and subsequent healing is inferred JOINTS: Normal. No osteoarthritic changes. SOFT TISSUES: There is some lucency and altered mottled density to the thenar soft tissues consistent with a history of bite. Well corticated ossifications resembling accessory ossification centers -developmental variants border the scaphoid and ulnar styloid as before OTHER FINDINGS: None. IMPRESSION: No interval cortical or osseous disruption. No interval radiopaque foreign body. The current thenar soft tissue density changes are consistent with a dog bite. Other findings as above
[2016-11-11 07:52] VITALS: BP 131/90; PULSE 86; RESP 16; TEMP 98; O2SAT 98
[2016-11-13] MEDS ORDERED: RABIES VACCINE 2.5 U PDR IM ONE (07:06)
== END 2016-11-11 07:55 | disposition home or self-care (01) ==
LOC: ED 02:17
DX: S61.412A Laceration without foreign body of left hand, initial encounter (principal); S61.411A Laceration without foreign body of right hand, initial encounter; W54.0XXA Bitten by dog, initial encounter; Y93.89 Activity, other specified; Y92.89 Other specified places as the place of occurrence of the external cause; Z23 Encounter for immunization
CPT/HCPCS: 12002; 73130; 90471; 90675; 96365; 99284; J0295

== ENCOUNTER 2016-11-13 06:43 | Emergency (ER) | payer OTHER ==
[2016-11-13 06:44] VITALS: PULSE 100; BMI 34.2
[2016-11-13 06:57] VITALS: BP 101/86; PULSE 101; RESP 17; TEMP 97.8
[2016-11-13 07:02] VITALS: O2SAT 101
[2016-11-13] MEDS ORDERED: Bacitracin 500 Units/gm Oint Foilpak UD TOP ONE (07:14)
--- NOTE | 2016-11-13 07:15 | ED PDOC ---
Arrival/HPI - General Chief Complaint: Rabies Vaccine Series Time Seen by Provider: 11/13/16 06:59 Historian: Patient - History of Present Illness Narrative History of Present Illness (Text): 11/13/16 07:10 Avel Pittman is a 45 year old male, whose past medical history includes diabetes, who presents to the emergency department for his final rabies shot. The patient was bitten in bilateral hands by a dog and has been taken his antibiotics as instructed. Patient had previously completed course of rabies vaccine (in July). See previous visit documentation for additional information. The patient denies any fever, chills, numbness, weakness, nausea, vomiting, or any other complaints. PMD: Dr. Vu Time/Duration: Other Symptom Onset: Other Symptom Course: Improving Quality: Other Activities at Onset: Other Modifying Factors (Text): None Context: Other Associated Symptoms (Text): None Past Medical History - Provider Review Nursing Documentation Reviewed: Yes - Infectious Disease Hx of Infectious Diseases: None - Tetanus Immunization Tetanus Immunization: Up to Date - Cardiac Hx Cardiac Disorders: Yes Hx Angina: Yes Hx Cardiac Arrhythmia: Yes Hx Circulatory Problems: No Hx Congestive Heart Failure: Yes Hx Heart Murmur: No Hx Heart Transplant: Yes (2013) Hx Hypertension: Yes Hx Mitral Valve Prolapse: No Hx Pacemaker: No Hx Peripheral Edema: No Hx Peripheral Vascular Disease: No - Pulmonary Hx Respiratory Disorders: Yes Hx Asthma: Yes Hx Bronchitis: No Hx Chronic Obstructive Pulmonary Disease (COPD): No Hx Emphysema: No Hx Pneumonia: No Hx Respiratory Aspiration: No Hx Respiratory Tract Infection: No Hx Sleep Apnea: No Hx Tuberculosis: No - Neurological Hx Neurological Disorder: Yes Hx Alzheimer's Disease: No HX Cerebrovascular Accident: Yes Hx Dementia: No Hx Meningitis: No Hx Migraine: No Hx Parkinson's Disease: No Hx Seizures: No Hx Transient Ischemic Attacks (TIA): Yes - HEENT Hx HEENT Disorder: No Hx Blind: No Hx Cataracts: No Hx Deafness: No Hx Difficulty Chewing: No Hx Epistaxis: No Hx Glaucoma: No Hx Macular Degeneration: No - Renal Hx Renal Disorder: No Hx Dialysis: No Hx Kidney Stones: No Hx Neurogenic Bladder: No Hx Pyelonephritis: No Hx Renal Cancer: No Hx Renal Failure: No - Endocrine/Metabolic Hx Endocrine Disorders: Yes Hx Adrenal Cancer: No Hx Diabetes Insipidus: No Hx Diabetes Mellitus Type 1: No Hx Diabetes Mellitus Type 2: Yes Hx Hyperthyroidism: No Hx Hypothyroidism: No Hx Systemic Lupus Erythematosus: No - Hematological/Oncological Hx Blood Disorders: No Hx AIDS: No Hx Anemia: No Hx Cancer: No Hx Chemotherapy: No Hx Cirrhosis: No Hx Hemophilia: No Hx Hepatitis A: No Hx Hepatitis B: No Hx Hepatitis C: No Hx Metastasis: No Hx Shingles: No Hx Sickle Cell Disease: No Hx Unexplained Bleeding: No - Integumentary Hx Dermatological Disorder: No Hx Basal Cell Carcinoma: No Hx Eczema: No Hx Melanoma: No Hx Psoriasis: No Hx Squamous Cell Carcinoma: No - Musculoskeletal/Rheumatological Hx Musculoskeletal Disorders: No Hx Falls: No - Gastrointestinal Hx Gastrointestinal Disorders: No Hx Colostomy: No Hx Crohn's Disease: No Hx Diverticulitis: No Hx Gall Bladder Disease: No Hx Gastroesophageal Reflux: No Hx Gastrointestinal Ulcer: No Hx Ileostomy: No Hx Liver Failure: No Hx Pancreatitis: No HX Swallowing Problems: No - Genitourinary/Gynecological Hx Genitourinary Disorders: No Hx Hematuria: No Hx Incontinence: No Hx Prostate Problems: No Hx Sexually Transmitted Diseases: No Hx Urinary Tract Infection: No - Psychiatric Hx Psychophysiologic Disorder: No Hx Anxiety: No Hx Bipolar Disorder: No Hx Depression: No Hx Emotional Abuse: No Hx Hallucinations: No Hx Panic Disorder: No Hx Post Traumatic Stress Disorder: No Hx Psychosis: No Hx Physical Abuse: No Hx Schizophrenia: No Hx Sexual Abuse: No Hx Substance Use: No - Past Surgical History Past Surgical History: No Previous - Surgical History Hx Amputation: No Hx Appendectomy: No Hx Cardiac Catheterization: Yes Hx Cholecystectomy: No Hx Coronary Stent: No Hx Gastric Bypass Surgery: No Hx Hysterectomy: No Hx Joint Replacement: No Hx Kidney Transplant: No Hx Liver Transplant: No Hx Mastectomy: No Hx Musculoskeletal Surgery: No Hx Open Heart Surgery: No Hx Orthopedic Surgery: Yes (in rt shoulder) Hx Splenectomy: No Hx Valve Replacement: No Other/Comment: heart transplant 2013 - Anesthesia Hx Anesthesia Reactions: No Hx Malignant Hyperthermia: No - Suicidal Assessment Feels Threatened In Home Enviroment: Yes Family/Social History - Physician Review Nursing Documentation Reviewed: Yes Family/Social History: Unknown Family HX Smoking Status: Former Smoker Hx Alcohol Use: No Hx Substance Use: No Hx Substance Use Treatment: No Allergies/Home Meds Allergies/Adverse Reactions: Allergies shellfish Allergy (Severe, Uncoded 11/11/16 02:39) ANGIOEDEMA Home Medications: Home Meds Medication Instructions Recorded Confirmed Warfarin [Coumadin] 6 mg PO DAILY 10/18/11 11/11/16 Aspirin [Aspirin Chewable] 81 mg PO DAILY 08/12/15 11/11/16 Atorvastatin [Lipitor] 10 mg PO DAILY 08/12/15 11/11/16 Calcium Citrate [Calcium Citrate] 950 mg PO DAILY 08/12/15 11/11/16 Folic Acid [Folic Acid] 1 mg PO DAILY 08/12/15 11/11/16 Lisinopril [Zestril] 10 mg PO DAILY 08/12/15 11/11/16 Magnesium Oxide [Laxative Dietary 1,500 mg PO BID 08/12/15 11/11/16 Supplement] MetFORMIN [glucoPHAGE] 500 mg PO BID 08/12/15 11/11/16 Multivitamin [Multivitamins] 1 tab PO DAILY 08/12/15 11/11/16 Pantoprazole Sodium [Protonix] 40 mg PO DAILY 08/12/15 11/11/16 Tacrolimus [Tacrolimus] 6 mg PO BID 08/12/15 11/11/16 Review of Systems - Review of Systems Constitutional: Other (dog bite to the bilateral hands). absent: Fevers Eyes: absent: Vision Changes ENT: absent: Sinus Congestion Respiratory: absent: SOB, Cough Cardiovascular: absent: Chest Pain Gastrointestinal: absent: Abdominal Pain, Constipation, Diarrhea, Nausea, Vomiting Genitourinary Male: absent: Dysuria Musculoskeletal: absent: Back Pain, Neck Pain Skin: absent: Rash Neurological: Other (no numbness). absent: Headache, Dizziness, Focal Weakness Endocrine: absent: Polyuria Psychiatric: absent: Depression Physical Exam Vital Signs Reviewed: Yes Vital Signs Temp Pulse Resp BP Pulse Ox 11/13/16 06:55 97.8 F 101 H 101/86 101 H 11/13/16 06:50 97.8 F 101 H 101/86 97 Temperature: Afebrile Blood Pressure: Normal Pulse: Tachycardic Respiratory Rate: Normal Appearance: Positive for: Well-Appearing, Non-Toxic, Comfortable Pain Distress: None Mental Status: Positive for: Alert and Oriented X 3 - Systems Exam Head: Present: Atraumatic, Normocephalic Pupils: Present: PERRL Extroacular Muscles: Present: EOMI Conjunctiva: Present: Normal Mouth: Present: Moist Mucous Membranes Neck: Present: Normal Range of Motion Respiratory/Chest: Present: Clear to Auscultation, Good Air Exchange. No: Respiratory Distress Cardiovascular: Present: Regular Rate and Rhythm, Normal S1, S2, Tachycardic. No: Murmurs Abdomen: Present: Normal Bowel Sounds. No: Tenderness, Distention, Peritoneal Signs Upper Extremity: No: Cyanosis, Edema Lower Extremity: Present: Normal Inspection. No: Edema Neurological: Present: GCS=15, CN II-XII Intact, Speech Normal Skin: Present: Warm, Dry, Normal Color, Other (puncture wound to the left palm with loose stitches intact, no erythema, no drainage; puncture wound to the base of the right thumb with clean edges, no erythema or drainage). No: Rashes Psychiatric: Present: Alert, Oriented x 3, Normal Insight, Normal Concentration Medical Decision Making ED Course and Treatment: 11/13/16 07:10 Impression: 45 year old male comes in for second rabies shot and wound check. Wound is clean with loose sutures in place. No evidence of infection. Differential Diagnosis included but are not limited to: Rabies Vaccination Plan: -- Bacitracin -- Rabies vaccination -- Reassess and disposition Prior Visits: Notes and results from previous visits were reviewed. The patient last presented to the emergency department on 11/11/16 for evaluation of a dog bite to the bilateral hands. Patient received his first rabies vaccination that day ( after prior 3 series dosage) and was told to follow up in 3 days for a second dose along with follow up with Dr. Chamberlain (hand specialist). Progress Notes: Patient reports he was unable to follow up with Dr. Chamberlain, as instructed, because they do no accept his insurance. Will give patient additional referrals. 11/13/16 07:15 On re-evaluation, the patient feels better and is in no acute distress. The wounds were cleaned, bacitracin applied and dressed. Will refer patient to additional hand surgeon. I have discussed the results and plan with the patient , who expresses understanding. Patient in agreement with plan to discharged home. Patient is stable for discharge. Patient was instructed to follow up with hand specialist or return if symptoms worsen or new concerning symptoms arise. 11/13/16 08:06 Patient was given rabies vaccine under ID number [id number] - Medication Orders Current Medication Orders: Discontinued Medications Bacitracin (Bacitracin) 1 ea TOP ONCE ONE Stop: 11/13/16 07:15 - Scribe Statement The provider has reviewed the documentation as recorded by the Scribe 11/13/16 Yani Brooks training with Louis Roberts Provider Scribe Attestation: All medical record entries made by the Scribe were at my direction and personally dictated by me. I have reviewed the chart and agree that the record accurately reflects my personal performance of the history, physical exam, medical decision making, and the department course for this patient. I have also personally directed, reviewed, and agree with the discharge instructions and disposition. Disposition/Present on Arrival - Present on Arrival Any Indicators Present on Arrival: No History of DVT/PE: No History of Uncontrolled Diabetes: No Urinary Catheter: No History of Decub. Ulcer: No History Surgical Site Infection Following: None - Disposition Have Diagnosis and Disposition been Completed?: Yes Diagnosis: Need for rabies vaccination Disposition: HOME/ ROUTINE Disposition Time: 07:15 Patient Plan: Discharge Patient Problems: Current Active Problems Problem Status Onset Need for rabies vaccination Acute Condition: GOOD Discharge Instructions (ExitCare): Rabies Vaccine (By injection) Additional Instructions: Finish full course of antibiotics. Take pain medication as needed. Return to ED if condition worsens. Follow-up with hand surgeon. Referrals: Carmelo Tomlin MD [Staff Provider] - Follow up with primary
== END 2016-11-13 08:45 | disposition home or self-care (01) ==
LOC: ED 06:43
DX: Z23 Encounter for immunization (principal)

== ENCOUNTER 2016-12-26 04:43 | Emergency (ER) | payer OTHER ==
[2016-12-26 04:43] VITALS: PULSE 100
[2016-12-26 04:45] VITALS: BMI 34.5
[2016-12-26 04:52] VITALS: BP 149/76; PULSE 97; RESP 18; TEMP 98.1; O2SAT 98
--- NOTE | 2016-12-26 04:59 | ED PDOC ---
Arrival/HPI - General Time Seen by Provider: 12/26/16 04:55 - History of Present Illness Narrative History of Present Illness (Text): 12/26/16 04:55 46yo male presents to the ER for medical clearance. Pt denies any complaints at this time and that he feels well. Pt states that he has an extensive medical history and he does not have his med. list with him. [employer] brought the pt in to obtain the list. Pt states he has a hx of heart transplant, his is on coumadin. Also recently had R. thumb and L. 5th digit surgery. Saw his orthopedist this week, and had dressings changed yesterday. Refused to have the bandages removed. Denies cp/sob/vann, denies n/v, no complaints. Past Medical History - Provider Review Nursing Documentation Reviewed: Yes - Infectious Disease Hx of Infectious Diseases: None - Tetanus Immunization Tetanus Immunization: Up to Date - Cardiac Hx Cardiac Disorders: Yes Hx Angina: Yes Hx Cardiac Arrhythmia: Yes Hx Circulatory Problems: No Hx Congestive Heart Failure: Yes Hx Heart Murmur: No Hx Heart Transplant: Yes (2013) Hx Hypertension: Yes Hx Mitral Valve Prolapse: No Hx Pacemaker: No Hx Peripheral Edema: No Hx Peripheral Vascular Disease: No - Pulmonary Hx Respiratory Disorders: Yes Hx Asthma: Yes Hx Bronchitis: No Hx Chronic Obstructive Pulmonary Disease (COPD): No Hx Emphysema: No Hx Pneumonia: No Hx Respiratory Aspiration: No Hx Respiratory Tract Infection: No Hx Sleep Apnea: No Hx Tuberculosis: No - Neurological Hx Neurological Disorder: Yes Hx Alzheimer's Disease: No HX Cerebrovascular Accident: Yes Hx Dementia: No Hx Meningitis: No Hx Migraine: No Hx Parkinson's Disease: No Hx Seizures: No Hx Transient Ischemic Attacks (TIA): Yes - HEENT Hx HEENT Disorder: No Hx Blind: No Hx Cataracts: No Hx Deafness: No Hx Difficulty Chewing: No Hx Epistaxis: No Hx Glaucoma: No Hx Macular Degeneration: No - Renal Hx Renal Disorder: No Hx Dialysis: No Hx Kidney Stones: No Hx Neurogenic Bladder: No Hx Pyelonephritis: No Hx Renal Cancer: No Hx Renal Failure: No - Endocrine/Metabolic Hx Endocrine Disorders: Yes Hx Adrenal Cancer: No Hx Diabetes Insipidus: No Hx Diabetes Mellitus Type 1: No Hx Diabetes Mellitus Type 2: Yes Hx Hyperthyroidism: No Hx Hypothyroidism: No Hx Systemic Lupus Erythematosus: No - Hematological/Oncological Hx Blood Disorders: No Hx AIDS: No Hx Anemia: No Hx Cancer: No Hx Chemotherapy: No Hx Cirrhosis: No Hx Hemophilia: No Hx Hepatitis A: No Hx Hepatitis B: No Hx Hepatitis C: No Hx Metastasis: No Hx Shingles: No Hx Sickle Cell Disease: No Hx Unexplained Bleeding: No - Integumentary Hx Dermatological Disorder: No Hx Basal Cell Carcinoma: No Hx Eczema: No Hx Melanoma: No Hx Psoriasis: No Hx Squamous Cell Carcinoma: No - Musculoskeletal/Rheumatological Hx Musculoskeletal Disorders: No Hx Falls: No - Gastrointestinal Hx Gastrointestinal Disorders: No Hx Colostomy: No Hx Crohn's Disease: No Hx Diverticulitis: No Hx Gall Bladder Disease: No Hx Gastroesophageal Reflux: No Hx Gastrointestinal Ulcer: No Hx Ileostomy: No Hx Liver Failure: No Hx Pancreatitis: No HX Swallowing Problems: No - Genitourinary/Gynecological Hx Genitourinary Disorders: No Hx Hematuria: No Hx Incontinence: No Hx Prostate Problems: No Hx Sexually Transmitted Diseases: No Hx Urinary Tract Infection: No - Psychiatric Hx Psychophysiologic Disorder: No Hx Anxiety: No Hx Bipolar Disorder: No Hx Depression: No Hx Emotional Abuse: No Hx Hallucinations: No Hx Panic Disorder: No Hx Post Traumatic Stress Disorder: No Hx Psychosis: No Hx Physical Abuse: No Hx Schizophrenia: No Hx Sexual Abuse: No Hx Substance Use: No - Past Surgical History Past Surgical History: No Previous - Surgical History Hx Amputation: No Hx Appendectomy: No Hx Cardiac Catheterization: Yes Hx Cholecystectomy: No Hx Coronary Stent: No Hx Gastric Bypass Surgery: No Hx Hysterectomy: No Hx Joint Replacement: No Hx Kidney Transplant: No Hx Liver Transplant: No Hx Mastectomy: No Hx Musculoskeletal Surgery: No Hx Open Heart Surgery: No Hx Orthopedic Surgery: Yes (in rt shoulder) Hx Splenectomy: No Hx Valve Replacement: No Other/Comment: heart transplant 2013 - Anesthesia Hx Anesthesia Reactions: No Hx Malignant Hyperthermia: No - Suicidal Assessment Feels Threatened In Home Enviroment: Yes Family/Social History Family/Social History: Unknown Family HX Smoking Status: Former Smoker Hx Alcohol Use: No Hx Substance Use: No Hx Substance Use Treatment: No Allergies/Home Meds Allergies/Adverse Reactions: Allergies shellfish Allergy (Severe, Uncoded 12/26/16 04:45) ANGIOEDEMA Home Medications: Home Meds Medication Instructions Recorded Confirmed Warfarin [Coumadin] 6 mg PO DAILY 10/18/11 11/11/16 Aspirin [Aspirin Chewable] 81 mg PO DAILY 08/12/15 11/11/16 Atorvastatin [Lipitor] 10 mg PO DAILY 08/12/15 11/11/16 Calcium Citrate [Calcium Citrate] 950 mg PO DAILY 08/12/15 11/11/16 Folic Acid [Folic Acid] 1 mg PO DAILY 08/12/15 11/11/16 Lisinopril [Zestril] 10 mg PO DAILY 08/12/15 11/11/16 Magnesium Oxide [Laxative Dietary 1,500 mg PO BID 08/12/15 11/11/16 Supplement] MetFORMIN [glucoPHAGE] 500 mg PO BID 08/12/15 11/11/16 Multivitamin [Multivitamins] 1 tab PO DAILY 08/12/15 11/11/16 Pantoprazole Sodium [Protonix] 40 mg PO DAILY 08/12/15 11/11/16 Tacrolimus [Tacrolimus] 6 mg PO BID 08/12/15 11/11/16 Physical Exam - Physical Exam Narrative Physical Exam (Text): 12/26/16 05:04 - Review of Systems Constitutional: Normal. absent: Fatigue, Weight Change, Fevers Eyes: Normal ENT: denies sore throat, denies tristhmus Respiratory: Normal. absent: SOB, Cough, Sputum Cardiovascular: absent: Chest Pain, Palpitations, Syncope Gastrointestinal: Normal. absent: Abdominal Pain, Diarrhea, Nausea, Vomiting Genitourinary: Normal. absent: Dysuria, Frequency, Hematuria Musculoskeletal: Normal. absent: Arthralgias, Back Pain, Neck Pain Skin: no rashes, no erythema Neurological: absent: Focal Weakness Endocrine: Normal Hemo/Lymphatic: Normal Psychiatric: No suicidal or homicidal ideations Physical exam Patient appears age appropriate in no distress, speaking full sentences without difficulty - Systems Exam Head: Present: Atraumatic, Normocephalic Pupils: Present: PERRL Extroacular Muscles: Present: EOMI Conjunctiva: Present: Normal Mouth: Present: Moist Mucous Membranes Neck: Present: Normal Range of Motion. No: MIDLINE TENDERNESS, Paraspinal Tenderness Respiratory/Chest: Present: Clear to Auscultation, Good Air Exchange. No: Respiratory Distress, Accessory Muscle Use, Tachypneic Cardiovascular: Present: Regular Rate and Rhythm, Normal S1, S2, Peripheal Pulses Present. No: Murmurs Abdomen: Present: Normal Bowel Sounds. No: Tenderness, Distention, Peritoneal Signs, Rebound, Guarding Back: Present: Normal Inspection. No: Midline Tenderness, Paraspinal Tenderness Upper Extremity: Present: clean dressings in place, pt refused to have them removed and examined Lower Extremity: Present: Normal Inspection. No: Edema Neurological: Present: GCS=15, Speech Normal, cranial nerves II through XII fully intact with no cerebellar abnormality, neurosensory fully intact. No focal neurological deficits. Skin: Present: Warm, Dry, Normal Color. No: Rashes Lymphatic: Present: OX3, NI, NC Psychiatric: Present: Alert, Oriented x 3, Normal Insight, Normal Concentration Vital Signs Reviewed: Yes Vital Signs Temp Pulse Resp BP Pulse Ox 12/26/16 04:52 98.1 F 97 H 18 149/76 98 Temperature: Afebrile Blood Pressure: Normal Pulse: Regular Respiratory Rate: Normal Appearance: Positive for: Well-Appearing Pain Distress: None Mental Status: Positive for: Alert and Oriented X 3 Medical Decision Making ED Course and Treatment: 12/26/16 05:05 updated medication list obtained pt in no distress and denies complaints released into police custody Disposition/Present on Arrival - Present on Arrival Any Indicators Present on Arrival: No History of DVT/PE: No History of Uncontrolled Diabetes: No Urinary Catheter: No History Surgical Site Infection Following: None - Disposition Have Diagnosis and Disposition been Completed?: Yes Diagnosis: Medical clearance for incarceration Disposition: RELEASED IN POLICE CUSTODY Disposition Time: 05:06 Patient Plan: Discharge Condition: GOOD Discharge Instructions (ExitCare): Normal Exam (ED) Additional Instructions: PLEASE TAKE MEDICATIONS PER LIST PATIENT NEEDS INR CHECKS PATIENT NEED ORTHOPEDIC FOLLOW UP FOR HIS 1ST AND 5TH DIGITS PATIENT NEEDS A OUTSOLE BEVELER FOLLOW UP RETURN TO THE ER RIGHT AWAY FOR NEW OR WORSENING SYMPTOMS OR IF YOU CANNOT FOLLOW UP INSTRUCTED PATIENT MEDICALLY CLEARED FOR RELEASE INTO POLICE CUSTODY Referrals: Kee Otero MD [Staff Provider] - Follow up with primary Olivia Dunbar MD [Staff Provider] - Follow up with primary Carmelo Tomlin MD [Staff Provider] - Follow up with primary
== END 2016-12-26 05:23 ==
LOC: ED 04:43
DX: Z02.89 Encounter for other administrative examinations (principal)